=== PATIENT | female | born 1945 | race Caucasian/White ===

== ENCOUNTER → 2016-04-20 | Outpatient (CLI) | payer MEDICARE, OTHER ==
[~2016-04-20] MED LIST: ARTIFICIAL TEA1 EACH OPHTH; ASCORBIC ACID500 MG PO; ASPIRIN325 MG PO; BIOTENE)(DRY MO16 OZ PO; CRAN-MAX500 M1 PO; DIFLUCAN ORA40 MG/ML PO; DULCOLAX10 MG R; FLAGYL500 MG PO; MYLANTA (MAG-AL30 ML PO; PRENATAL 1+1)(P1 TAB PO; PROTONIX40 MG PO; TYLENOL LI160 MG/5 M PO; ZOFRAN4 MG SL; [UNRECOGNIZED DRUG - OTHER] PO; [UNRECOGNIZED DRUG - OTHER] PO; [UNRECOGNIZED DRUG - OTHER] PO; [UNRECOGNIZED DRUG - OTHER] PO
--- NOTE | ~2016-04-20 | COMP ---
PATIENT'S NAME: JENNIFER EVERETT [facility] AGE: 71 Y [address] ROOM: [place], [place] [address] LOCATION: 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 Dear Doctor: Ms. Jennifer Everett recently finished radiotherapy in our facility for metastatic disease to the whole brain. 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 The patient was treated to the whole brain for a dose of 3000 cGy in 300 cGy fractions and finished her radiotherapy on 04/21/2016. When seen on 04/19/2016, the patient was doing reasonably well. The patient's family was concerned about her symptomatology at that time. Milton that her balance was potentially worse. The patient denied headache. Indicated that she thought that her thigh muscles felt weak bilaterally, and the patient was having some difficulty with word finding. The patient was at that time on a dose of Decadron 4 mg twice a day. We had tried to increase the Decadron dose, but the patient indicated that this has increased her symptomatology specifically her leg weakness. PHYSICAL EXAMINATION: VITAL SIGNS: From 04/19/2016 included a temperature of 97.0, pulse of 67, blood pressure of 125/68, pain is 0, and weight is 63.2 kilos. HEENT: Head; examination of the scalp did not reveal erythema or skin breakdown. The patient did have alopecia. Sclerae are clear. Oral cavity did not show any mycotic lesions. The patient did have an upper plate in place. Tongue protrudes in midline. NEUROLOGIC: The patient is alert and oriented x3. Cranial nerves 2 through 12 are intact. Gait is slow and purposeful. SUMMARY OF THERAPY: PATIENT'S NAME: JENNIFER EVERETT [facility] AGE: 71 Y [address] ROOM: [place], [place] [address] LOCATION: [facility] ADMIT DATE: 04/20/2016 Oncology Report DISCHARGE DATE: FAMILY PHYSICIAN: Devora Gonzalez ATTENDING PHYSICIAN: Joselyn Sheikh The patient was treated to the area of the whole brain using opposed lateral 6 mV photons for a dose of 3000 cGy in 300 cGy fractions. The patient was treated between 04/07/2016 and 04/21/2016 for 10 fractions over 14 elapsed treatment days to a total dose of 3000 cGy. IMPRESSION AND PLAN: The patient tolerated the treatment reasonably well. She did have some problems with increasing weakness and some difficulty with word finding. The patient will be tapered off her Decadron carefully. She will be scheduled for routine followup in 1 months' time. She is told to contact us should she have any problems in the interim. We thank you for allowing us to participate in her care. Sincerely, GARCÍA WAGNER MD, PHD MURRAYL/sherinl /[id number] CC: MD Devora Barnhart PA Peter C Morris, MD Nicholas J Hartl, MD David H Weir, MD d: 04/24/16 2254 t: 05/05/16 1124, THERAPY SUMMARY
== END | disposition disaster alternative care site (69) ==
LOC: GRAD 13:39
DX: C54.1 Malignant neoplasm of endometrium (principal); C79.31 Secondary malignant neoplasm of brain; R29.898 Other symptoms and signs involving the musculoskeletal system
CPT/HCPCS: A9577

== ENCOUNTER → 2016-05-25 | Outpatient (CLI) | payer MEDICARE, OTHER | END | disposition disaster alternative care site (69) | LOC: GRAD 09:25 | DX: C54.1 Malignant neoplasm of endometrium (principal); C78.7 Secondary malignant neoplasm of liver and intrahepatic bile duct; K63.89 Other specified diseases of intestine; K80.20 Calculus of gallbladder without cholecystitis without obstruction; K52.0 Gastroenteritis and colitis due to radiation; D70.1 Agranulocytosis secondary to cancer chemotherapy; D64.81 Anemia due to antineoplastic chemotherapy ==

== ENCOUNTER → 2016-06-07 | Outpatient (CLI) | payer MEDICARE, OTHER | END | disposition disaster alternative care site (69) | LOC: GRAD 13:32 | DX: R29.898 Other symptoms and signs involving the musculoskeletal system (principal); C54.1 Malignant neoplasm of endometrium; D64.81 Anemia due to antineoplastic chemotherapy; K52.0 Gastroenteritis and colitis due to radiation; C78.7 Secondary malignant neoplasm of liver and intrahepatic bile duct; D70.1 Agranulocytosis secondary to cancer chemotherapy; R60.0 Localized edema; R10.11 Right upper quadrant pain; Z85.841 Personal history of malignant neoplasm of brain ==

== ENCOUNTER 2016-06-09 15:29 | Inpatient (IN) | payer MEDICARE, OTHER ==
[~2016-06-09] VITALS: Ht 160 cm; Wt 64.5 kg
--- NOTE | ~2016-06-09 | FOL ---
PATIENT'S NAME: JENNIFER CARDENAS [facility] AGE: 71 Y [address] 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 HISTORY OF PRESENT ILLNESS: Jennifer is a 71-year-old female who noticed, for the past 2 weeks, weakness to her legs. The patient had been receiving IV hydration at her medical oncologist's office. The patient states last , she had weakness of the legs, worse on the right than the left. By Tuesday, the patient was unable to stand or move her legs. The patient's family called the medical oncologist's office who recommended she be seen in the emergency room. The patient came to [facility] on 06/09/2016. She had a one-view chest x-ray that was negative for cardiopulmonary disease. MRI of the cervical spine showed spherical enhancing nodule within the cord on the right side behind the C3-4 interspace. Consistent with metastatic focus. Seen previously on cranial MRI study measuring 9 x 7.5 mm. The remainder of the cervical cord appeared normal. No bone lesions were evident. No epidural neoplasm. MRI of the thoracic spine performed on 06/09/2016 showed overall normal vertebral body alignment and monzon signal. Metastatic lesion in the cord at the level of the conus with a craniocaudal dimension of 25 mm. Slightly to the right of the midline with transverse measurement of 6 mm. Remainder of the thoracic cord was normal. There were mild multilevel degenerative changes. The patient was admitted following evaluation in the emergency room. The patient is brought over to the [facility] for CT simulation of the T12 lesion for treatment. The patient denied any pain currently. She had previously received whole brain irradiation to a dose of 3000 cGy. She completed therapy on 04/21/2016. The patient had also received radiation chemotherapy for her endometrial cancer. She was treated to 5040 cGy to the pelvis. She completed therapy on 12/27/2014. The patient then received brachytherapy for 3 fractions to a dose of 1200 cGy and completed therapy on 12/31/2014. The patient had been seeing Dr. Ritchie for chemotherapy. Most recently, the patient was diagnosed with C difficile. She had been placed on Flagyl. The patient was treated twice. PATIENT'S NAME: JENNIFER CARDENAS [facility] AGE: 71 Y [address] ROOM: [address] [address] [place]: [facility] [place]MIT DATE: 06/09/2016 Oncology Report DISCHARGE DATE: FAMILY PHYSICIAN: Devora Gonzalez ATTENDING PHYSICIAN: Austyn OLMOS The patient was complaining of abdominal pain before being diagnosed with C difficile. Her abdominal pain has resolved since starting the Flagyl. PAST MEDICAL HISTORY: ALLERGIES: SULFA, PENICILLIN, AND BENADRYL. MEDICATIONS: 1. Protonix 40 mg daily. 2. Flagyl 500 mg one tablet every 6 hours. 3. Decadron 4 mg IV q.6 hours. 4. Carafate 1 g q.i.d. 5. Mylanta 15 mL b.i.d. p.r.n. 6. Lovenox 30 mg subcu at h.s. 7. Morphine 1 mg IV q.4 hours p.r.n. 8. Tylenol Extra Strength 500 mg one tablet p.o. q.6 hours p.r.n. 9. Zofran 4 mg IV q.8 hours p.r.n. 10. Theravite one tablet daily. 11. HydroDIURIL 25 mg one tablet q.a.m. 12. Citracal 950 mg one tablet daily. 13. Lipitor 10 mg one tablet at h.s. 14. Aspirin 325 mg one tablet daily. MEDICAL PROBLEMS: 1. Hypercholesterolemia. 2. Vertigo. 3. Actinic keratosis to the nose. 4. Gastroesophageal reflux disease. 5. Hypertension. 6. Early cataracts. 7. Decreased auditory acuity. 8. Endometrial cancer. 9. Hiatal hernia noted on CAT scan. 10. Cholelithiasis noted on CAT scan. 11. Fatty liver noted on CAT scan. PAST SURGICAL HISTORY: 1. Tonsillectomy. 2. Tubal ligation in 1984. 3. Right ankle fracture in 1974. 4. Hysteroscopy on 07/18/2014. 5. Dilation and curettage on 07/18/2014. 6. Robotic-assisted total abdominal hysterectomy with bilateral salpingo- oophorectomy and pelvic and periaortic lymphadenectomy on 08/12/2014. PATIENT'S NAME: JENNIFER CARDENAS [facility] AGE: 71 Y [address] ROOM: [place] [address] LOCATION: [facility] [place] ADMIT DATE: 06/09/2016 Oncology Report DISCHARGE DATE: FAMILY PHYSICIAN: Devora Gonzalez ATTENDING PHYSICIAN: Austyn OLMOS 7. Port-A-Cath placement. 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 She and her live by [place]. They have one son and one daughter. She denied any alcohol or tobacco use. She previously received radiation therapy and chemotherapy. FAMILY HISTORY: Father of colon cancer at the age of 94. Mother at the age of 86 with heart disease, diabetes, and hypertension. The patient has a brother and sister who are living. Maternal grandmother had cancer of unknown type. REVIEW OF SYSTEMS: GENERAL: The patient has poor appetite. She feels her weight has been steady. No recent fevers or chills. She does have fatigue. SKIN: Denied any rash, itching, or sores. HEENT: No recent headaches. She has bilateral hearing aids, she is not wearing them today. The patient wears glasses. No change in her vision. LUNGS: No cough. She denied shortness of breath. GASTROINTESTINAL: The patient has been supplementing her diet with Ensure. She has poor appetite. Had recent abdominal pain prior to being diagnosed with C difficile. She is now having formed stools. No further diarrhea. CARDIOVASCULAR: No recent chest pain. No heart palpitations. No previous DC. GENITOURINARY: The patient has stress incontinence. No blood in her urine. No vaginal discharge. NEUROLOGIC: The patient has positional vertigo when she lies flat. The patient is unable to move her right leg. She is able to move her toes on the left foot. MUSCULOSKELETAL: Previous right ankle fracture. The patient previously had been dragging her left leg due to weakness. ENDOCRINE: Denied diabetes. Denied thyroid disease. OBSTETRICAL/GYNECOLOGICAL: The patient had her menarche at the age of 13. She went through menopause at the age of 48. The patient is 2, para 2. She delivered her first child at the age of 21. Doni Duckworth APRN, acting as Dr. Wagner's scribe for the physical examination, impression, and plan. PHYSICAL EXAMINATION: VITAL SIGNS: Temperature 98.0, pulse 63, blood pressure 142/68, and oxygen saturation 98% on room air. The patient's weight is 24.8 kg. The patient is 5 feet 3 inches tall. HEENT: The patient is alert and oriented. Her speech is slightly thickened. This has been stable since diagnosis of brain metastasis. Sclerae are clear. PATIENT'S NAME: JENNIFER CARDENAS [facility] AGE: 71 Y [address] ROOM: [place] [address] [place]: [facility] [place]MIT DATE: 06/09/2016 Oncology Report DISCHARGE DATE: FAMILY PHYSICIAN: Devora Gonzalez ATTENDING PHYSICIAN: Austyn OLMOS Oral cavity does not show any mycosis or mucositis. NECK: No palpable mass or lymphadenopathy to the neck. LUNGS: Clear anteriorly and posteriorly. I do not hear any wheezes, rales, or rhonchi. HEART: Regular rate and rhythm. Normal S1 and S2. ABDOMEN: Soft and nontender. No masses. Active bowel sounds. EXTREMITIES: No edema. Pulses are 1+. The patient can move the toes on the left lower extremity. No motion to the right lower extremity. 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 PLAN: We will plan to treat the patient's lesion at the T12 thoracic spine for 10 treatment fractions to a dose of [address] scan the patient today and treat her later this afternoon once her plan is complete. Dr. Wagner will reevaluate her neck pain next week. She may also receive treatment to this area in 10 treatment fractions to a dose of 3000 cGy. Risks, benefits, and side effects of treatment were discussed with the patient, her , and her daughter today. We will likely bring the patient back later this afternoon to start her radiation therapy. Thank you for allowing us to participate in the care of this patient. DONI DUCKWORTH APRN FOR GARCÍA WAGNER MD, PHD LAD/modl /[id number] CC: MD Devora Pope PA David H Weir, MD d: t: 06/29/16 0921, FOLLOW-UP NOTE
--- NOTE | ~2016-06-09 | DS ---
PATIENT'S NAME: JENNIFER CARDENAS [facility] AGE: 71 Y [address] ROOM: [id number] [place], [place] [address] LOCATION: [facility] [place] ADMIT DATE: 06/09/2016 Discharge Summary DISCHARGE DATE: 06/25/2016 FAMILY PHYSICIAN: Devora Gonzalez ATTENDING PHYSICIAN: Austyn AN DISCHARGE DIAGNOSES: 1. 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 2. Uterine cancer with metastases. 3. Essential hypertension. 4. Constipation. 5. Recent history of Clostridium difficile colitis, resolved. HOSPITAL COURSE: Please refer to admitting history and physical as dictated by Dr. An. Briefly, the patient was admitted to [facility] with bilateral lower extremity weakness. She was started on dexamethasone 10 mg IV, followed by 4 mg IV every six hours. She was also continued on Flagyl for her recent history of C. diff. Lovenox was used for DVT prophylaxis. Oncology and Radiation Oncology were both consulted. MRI of the brain did show an enhancing mass in the cervical cord at C3-C4, with edema within the cord. The brain metastases were no longer discernable consistent with treatment response versus 04/20/2016. Cervical spine MRI showed metastasis focus in the cervical cord with edema directly behind the C3-C4 interspace. Thoracic spine MRI showed bilobed intramedullary cord mets in the conus medullaris. Dr. Peraza and Dr. Gonzales both saw the patient, and it was recommended that she proceed with radiation therapy first starting on the thoracic spine and then moving to the cervical spine. Palliative Care was consulted due to the metastases of her uterine cancer. Her dexamethasone was tapered. Her C. diff colitis was stable. She did finish her course of Flagyl. Physical Therapy and Occupational Therapy were both consulted. She was using a lift for transfers, and subsequently a [id number] lift. Her appetite remained well. Due to her constipation, she was started on Dulcolax suppositories as needed. Discharge planning was discussed. The patient and the family did decide to proceed home with [facility]ospice [facility]. Her radiation to the cervical and thoracic spine were completed on 06/25/2016. The patient and family wished to proceed home with Hospice. Arrangements were made. I did call and discuss the case with Devora Gonzalez PA-C at [facility] prior to the patient's discharge. On the day of discharge, her vital signs were stable. She did have a bowel movement prior to discharge. She was on room air. It was felt as though she was stable to be discharged to home with the [facility] to evaluate and admit. Follow up with PCP in one week if questions. Diet was as tolerated. LABORATORY DATA: Sodium remained stable, potassium was 3.5 to 3.9, calcium PATIENT'S NAME: JENNIFER CARDENAS [facility] AGE: 71 Y [address] ROOM: [id number] [place] [id number] LOCATION: [facility] [place] ADMIT DATE: 06/09/2016 Discharge Summary DISCHARGE DATE: 06/25/2016 FAMILY PHYSICIAN: Devora Gonzalez ATTENDING PHYSICIAN: NICKOLASDagmawe was 8.7, BUN was 21 to 27, creatinine was 0.4 to 0.9, AST was 16, ALT was 32, GFR remained greater than 60, and mag was 1.9. TSH of 1.710. WBCs are 5.4 to 7.3, hemoglobin is 10.6 to 12.2, hematocrit is 30.8 to 35.2, and platelets are 158. UA was negative. RADIOLOGY REPORTS: Please refer to hospital course. DISCHARGE INSTRUCTIONS: The patient will be discharged to home. Diet: As tolerated. Activity: With assistance. Followup: With POLINA Christensen in one week if questions. [facility] to evaluate and admit. DISCHARGE MEDICATIONS: 1. Mylanta 15 mL p.o. twice daily as needed for indigestion. 2. Dexamethasone 2 mg daily for five days and every other day for 5 doses, then discontinue. 3. Carafate 1000 mg orally before meals and at bedtime. 4. Prevacid slurry 10 mL p.o. daily. 5. Fluconazole 100 mg p.o. daily. 6. Lactobacillus 1 packet p.o. daily. 7. Tylenol 650 mg orally every four hours as needed for pain. 8. Biotene mouthwash 1 ounce orally everyday as needed for dry mouth. 9. Zofran 4 mg sublingual every six hours and as needed for nausea. 10. Dulcolax suppository 10 mg rectally every other day for constipation. Time spent at the bedside, as well as with medication reconciliation and consulting physicians was 35 minutes. SPRING BETTS APRN FOR MD MEGHANA NAVAS/sherinl /[id number] CC: POLINA Christensen MD, PhD Maria R Monet, [place] PATIENT'S NAME: JENNIFER CARDENAS [facility] AGE: 71 Y [address] ROOM: [place] [address] LOCATION: [facility] [place] ADMIT DATE: 06/09/2016 Discharge Summary DISCHARGE DATE: 06/25/2016 FAMILY PHYSICIAN: Devora Gonzalez ATTENDING PHYSICIAN: Austyn AN MD d: 06/26/16 0309 t: 07/12/16 2113, DISCHARGE SUMMARY
--- NOTE | ~2016-06-09 | ER ---
PATIENT'S NAME: JENNIFER CARDENAS [facility] AGE: 71 Y [address] ROOM: [address] [place] [address] LOCATION: [facility] [place] ADMIT DATE: 06/09/2016 ER/Outpatient Report DISCHARGE DATE: FAMILY PHYSICIAN: Devora Gonzalez ATTENDING PHYSICIAN: Austyn OLMOS Admission date and time documented in the medical record. I saw the patient at 1545 hours. CHIEF COMPLAINT: Increased weakness in her legs bilaterally. HISTORY OF PRESENT ILLNESS: This patient is a 71-year-old female, brought to the emergency room by a private vehicle for evaluation. The patient has had increasing weakness over the past 2 weeks, worse especially over the past few days to the point that she can just barely move her right leg. She has a little bit of numbness along with weakness in both legs. She can not picker feeder the left leg straight leg raising and keep it at a steady angle for a count of 5 and then lower it. She can not even bend the right leg. She can dorsiflex and plantar flex her left foot. She can not dorsiflex her right foot and can only plantar flex. No upper extremity numbness, tingling, weakness, or loss of function. She is awake, alert, and responsive. Answered questions appropriately. She is oriented. She has a little bit of bilateral shoulder pain because she is having people are having to reach under her arms and her axillas to help her move. said that she had some slurring of words. However, I did not appreciate that here in the emergency department. The patient had an MRI scan of the brain on Tuesday. There was some questionable area right at the base of the brain. She is in need of having an MRI scan of the cervical and thoracic spine, which basically she was sent in for by Dr. Ritchie. This was scheduled for Tuesday, and they thought that it should probably be done sooner. She does have a recent history of C. diff colitis, has been on steroids and Flagyl for this. She is continuing her present treatment. She has not fallen or had any other trauma. Denies any headache, eyes, ears, nose, throat, neck, or spine pain. Other than the C. diff colitis, she has had no other coughs, colds, fever, chills, sweats. Maybe mildly lightheaded at times but no syncope or near syncope. No chest pain, shortness of breath. No abdominal pain. No nausea or vomiting, diarrhea, or urinary complaints. No skin eruptions or rash. No history of other neuro changes, psych issues, endocrine problems. HOME MEDICATIONS: See attached medication list. ALLERGIES: PENICILLIN, SULFA, BENADRYL. PATIENT'S NAME: JENNIFER CARDENAS [facility] AGE: 71 Y [address] ROOM: [address] [place] [address] LOCATION: [facility] [place] ADMIT DATE: 06/09/2016 ER/Outpatient Report DISCHARGE DATE: FAMILY PHYSICIAN: Devora Gonzalez ATTENDING PHYSICIAN: Austyn OLMOS SOCIAL HISTORY: Nonsmoker, nondrinker. SIGNIFICANT PAST MEDICAL HISTORY: Uterine cancer metastatic to bone and brain, gastroesophageal reflux, C. diff colitis. OPERATIONS: Port placement, hysterectomy. REVIEW OF SYSTEMS: All systems reviewed by me are negative with the exception of those discussed in the history of present illness. PHYSICAL EXAMINATION: VITAL SIGNS: Temperature 98.1 tympanic, pulse 73 and regular, respirations 14, blood pressure 136/62, O2 saturation on room air is 97%. HEAD: Normocephalic. No abrasion, contusion, laceration, swelling of scalp or face. EYES: Extraocular muscles intact. PERRL. EARS: Clear TMs bilaterally. NOSE: Clear. THROAT: Clear. Mucous membranes are little dry. NECK: No nuchal rigidity. No thyromegaly or cervical adenopathy. LUNGS: Clear, good air flow. No rales, rhonchi, or wheezes. HEART: Regular. Pulses are palpable. No chest wall or ribcage pain to palpation. ABDOMEN: Soft, nondistended. Active bowel tones. No organomegaly or abnormal mass palpable. No CVA tenderness. EXTREMITIES: No peripheral edema, cyanosis, or deformity. NEURO: The patient has sensory deficits in the lower extremities and motor deficits in both lower extremities, worse in the right. The patient can lift her left leg. She has very little movement in the right lower leg. She can plantar flex her foot on the right. She can plantar flex and dorsiflex her foot on the left. There is no joint swelling. There are no other extremity or neurological lateralizing signs. Cranial nerves appear to be intact. Does have some sensory deficits as well as the motor deficit of the lower extremity. None in the upper extremities. SKIN: Clear. LABORATORY DATA AND X-RAYS: Chest x-ray showed no acute infiltrate or changes. This film was read by the radiologist. PATIENT'S NAME: JENNIFER CARDENAS [facility] AGE: 71 Y [address] ROOM: [place] [address] LOCATION: [facility] [place] ADMIT DATE: 06/09/2016 ER/Outpatient Report DISCHARGE DATE: FAMILY PHYSICIAN: Devora Gonzalez ATTENDING PHYSICIAN: Austyn OLMOS Laboratory: Procalcitonin was less than 0.05. CMS was normal except for a slight low potassium 3.6, elevated glucose 137. CPK was 24, [id number] cardiac enzymes were normal. CRP was less than 0.29. TSH was 1.71. White count was 7300, 91 segs, 6 lymphocytes, 3 monos, hemoglobin was 12.2 with hematocrit 35.2, platelet count was 293,000. Sed rate was 29, PTT was 22, pro- time was 10.7, INR 1.02. Lactate was 1.78. Urinalysis on a cath specimen was pending. MRI scan of the cervical spine and thoracic spine are pending. IMPRESSION: 1. Uterine cancer with metastatic disease to the bone and brain. The patient has been developing increasing weakness in her lower extremities over the past 2 weeks, worse over the past 2 to 3 days, affecting mainly the right leg given the fact that she has sensory and motor deficits in comparison to the left leg, which is just weak and mildly tingly. No other neuro or sensory deficits. 2. Recent Clostridium difficile colitis. 3. Gastroesophageal reflux. PLAN: I did transfer this patient's care over to Dr. Koenig at shift change. I asked Dr. Koenig to follow up with the patient's MRI scans, results, urinalysis results, final diagnosis, and treatment plan. Most likely, the patient will be admitted because of her inability to walk, and family is having problems caring for her because of her extreme weakness. She is not eating or drinking well either. She may therefore need to be placed in a care facility. MD SHIRAZ CAROLINA/mercedez /[id number] d: 06/09/16 2331 t: 06/10/16 0612, OUTPATIENT REPORT
--- NOTE | ~2016-06-09 | CON ---
PATIENT'S NAME: JENNIFER CARDENAS [facility] AGE: 71 Y [address] ROOM: [address] [address] [place] [facility] [place]: 06[place]2016 Consultation DISCHARGE DATE: FAMILY PHYSICIAN: Devora Gonzalez ATTENDING PHYSICIAN: Austyn OLMOS DATE OF CONSULTATION: 06/11/2016 REFERRING PHYSICIAN: Darwin Ritchie MD LOCATION: Medical-Surgical Unit, room 3206. REFERRING PROVIDER: Carl Gonzales MD. CHIEF COMPLAINT: Palliative Care referral for goals of care and patient/family support due to metastatic uterine cancer. HISTORY OF PRESENT ILLNESS: The patient is a 71-year-old female who was admitted with a 1-2 week history of bilateral lower extremity weakness, right greater than left. She has a history of uterine cancer with metastasis to the brain and liver, status post chemo and brain radiation. The patient underwent an MRI which revealed metastatic lesion to the cervical and conus. She was initiated on radiation therapy yesterday. She is also on steroids and currently having some issues with slurred speech and seemingly increased weakness which family believes is related to increased steroids as this had happened in the past. The patient reports that her weakness has worsened since admission with increasing of the steroids. She reports that she lives at home with her as her primary caregiver, that he does most of the house work with the assistance of their daughter. She reports that she has noticed this generalized weakness over the last few weeks and over the last couple of days, this has gotten much worse to the point where she is no longer able to stand and bear weight. She does have a history of a recent diagnosis of C. difficile, and she is currently on a course of Flagyl for this. She does report having had a formed stool at home, but since coming to the hospital, has had a couple of loose ones. The patient denies any pain or discomfort. Denies shortness of breath. Denies chest pain or nausea or vomiting. Appetite has been fairly good. Denies any incontinence of bowel or bladder at this time. Given the patient's metastatic disease, Palliative Care has been consulted to assist this family. PREVIOUS OPERATIONS: 1. Tonsillectomy. 2. Tubal ligation. PATIENT'S NAME: JENNIFER CARDENAS [facility] AGE: 71 Y [address] ROOM: [place] [address] [place] [facility] [place]: 06/[place]/2016 Consultation DISCHARGE DATE: FAMILY PHYSICIAN: Devora Gonzalez ATTENDING PHYSICIAN: Austyn OLMOS 3. Hysterectomy. 4. Power port placement. PAST MEDICAL HISTORY: 1. Recent diagnosis of C. difficile. 2. 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 3. GERD. 4. Hypertension. 5. Hypercholesterolemia. MEDICATIONS: Home medications: 1. Mylanta 15 mL twice daily. 2. Decadron 4 mg p.o. twice daily. 3. Flagyl 500 mg every 6 hours. 4. Protonix 40 mg p.o. twice daily. 5. Carafate 1 g p.o. 4 times daily. ALLERGIES: TO PENICILLIN, SULFA, CODEINE, AND DIPHENHYDRAMINE. SOCIAL HISTORY: The patient is and lives with her , he is her primary caregiver. They live in [place], [place]. No history of drug or alcohol use. FAMILY HISTORY: Father of colon cancer in 1989. Mother had heart disease and diabetes. Brother with hypertension. Her sister is alive and well. REVIEW OF SYSTEMS: GENERAL: Appetite has been fair to good. Unaware of any recent changes in weight. No recent fever, chills, or night sweats. Does have some fatigue, mild to moderate. HEENT: No changes in vision or hearing. Denies headache. Denies double vision. No sinus congestion or postnasal drip. RESPIRATORY: Denies shortness of breath or cough. CARDIOVASCULAR: No chest pain, pressure, or palpitations. Denies orthopnea. No peripheral edema. GASTROINTESTINAL: No nausea, vomiting, diarrhea, or constipation. She does have a recent history of C. difficile, is still on Flagyl, and reports that her last stool at home was formed, but has had a couple looser stools here at the hospital. No dysphagia. GENITOURINARY: Denies urinary frequency or urgency. Denies incontinence. MUSCULOSKELETAL: Denies any joint swelling or joint pain. Has had increasing PATIENT'S NAME: JENNIFER CARDENAS [facility] AGE: 71 Y [address] ROOM: [place] [address] [place] [facility] [place]: 06/09/2016 Consultation DISCHARGE DATE: FAMILY PHYSICIAN: Devora Gonzalez ATTENDING PHYSICIAN: Austyn OLMOS weakness over the last couple of weeks, especially in the last 2 to 3 days. NEUROLOGICAL: Denies numbness or tingling. No dizziness, syncope, or seizures. INTEGUMENTARY: No rashes or open areas. HEMATOLOGICAL: No new bruising or bleeding. PSYCHIATRIC: Denies feeling overly depressed or anxious. Denies insomnia. PHYSICAL EXAMINATION: VITAL SIGNS: Blood pressure 142/67, heart rate 55, temperature 98.2, respirations 18, and O2 saturations 99% on room air. GENERAL: An alert and oriented, elderly white female who is lying in a hospital bed, does not appear to be in any acute distress. Visits pleasantly. Her and daughter are at bedside. HEENT: Normocephalic and atraumatic. She does have alopecia. Pupils are equal, round, and reactive to light. Sclerae anicteric. Conjunctivae pink. Tongue and mucous membranes are moist and pink. CARDIOVASCULAR: Heart tones regular rate and rhythm. I am not able to note a murmur. RESPIRATORY: Respirations are regular and nonlabored. Lung sounds are clear to auscultation bilaterally. I am not able to note any rales, rhonchi, or wheezes. GASTROINTESTINAL: Abdomen is soft, nontender. Bowel sounds are present. GENITOURINARY: Not examined. MUSCULOSKELETAL: No significant joint deformities. Peripheral pulses are strong and equal bilaterally. There is no clubbing, cyanosis, or edema. SKIN: Warm and dry. No unusual lesions or rashes. NEUROLOGICAL: The patient's speech, she does talk as though she has cotton in her mouth. Speech is not really slurred, just mumbled. Left Lower Extremity: The patient is able to lift her knee up off the bed and move her toes. On the right, there is no movement. Bilateral Upper Extremities: Grasp is moderate, left greater than right strength. PSYCHIATRIC: Displays appropriate mood and affect for the situation. Palliative performance scale is 40%. IMPRESSION AND PLAN: 1. Bilateral lower extremity weakness. The patient has been initiated on radiation and steroids increased. Family questions whether these need to be decreased back down, as they feel as though her weakness has gotten worse since increasing the steroids. We will also need to initiate physical and occupational therapy. 2. Code status. The patient is a DNR/DNI. She does have a living will on the chart, this was reviewed with the patient and her family at bedside and all are on the same page. Introduced the role of palliative care for symptom management and goals of PATIENT'S NAME: JENNIFER CARDENAS [facility] AGE: 71 Y [address] ROOM: [place] [address] [place] [facility] [place]: 06/09/2016 Consultation DISCHARGE DATE: FAMILY PHYSICIAN: Devora Gonzalez ATTENDING PHYSICIAN: Austyn OLMOS discussion. Discussed her diagnosis of uterine cancer, her previous treatments and her current symptoms and treatment. They report that the plan is for 10 days of radiation to both areas in her spine per family. The patient tells me that her goal is to be able to return home. She also tells me that quality of life is much more important than quantity at this time. Discussed various placement and therapy options given her current situation. The patient's family reports that they are willing to look at short-term placement at [facility] for therapy. Did also discuss home health care versus hospice benefits and services. At this point, the patient's has been very helpful in her care. I did visit with him in regard to caregiver burnout, he reports that he is getting along quite well and denies any concerns. The patient and family asked appropriate questions for the situation and seemed to have a good understanding of options, treatments, and disease process. They remain hopeful that she will regain some strength, but they do report that they have the option of a full lift at home if needed. Provided education to them on Home Health versus hospice services, answered their questions. Family is very thankful for the visit and will follow up throughout the hospital stay for further goals of care discussion and as we see how treatment affects her strength. Total visit was 45 minutes, greater than 50% of this time was spent providing education and counseling. Thank you for allowing me to assist patient and family. MAXIMILIANO BLACKBURN NP FOR PIO HAN MD DLS/modl /[id number] CC: Carl Gonzales MD d: 06/16/16 2151 t: 06/28/16 1620, CONSULTATION REPORT
--- NOTE | ~2016-06-09 | ER ---
PATIENT'S NAME: JENNIFER CARDENAS [facility] AGE: 71 Y [address] ROOM: [place] [address] [place]: [facility] [place]: 06/09/2016 ER/Outpatient Report DISCHARGE DATE: FAMILY PHYSICIAN: Devora Gonzalez ATTENDING PHYSICIAN: Austyn OLMOS HISTORY OF PRESENT ILLNESS: Briefly, this patient was signed out to me by Dr. Bertrand pending MRI imaging. Briefly, this is a 71-year-old female with history of uterine cancer with mets to the brain presents with right lower extremity weakness. The patient says that this is ongoing for a few days now. She states that she cannot even move her right leg at this time and she cannot plantarflex it, she cannot really dorsiflex it, she cannot lift it up against gravity, and she can no longer walk. She had been seen at her doctor's office for this and they had scheduled an MRI of her cervical spine and back and lumbar thoracic as well. She had an MRI done on 06/07/2016 for her symptoms which showed enhancing mass in the cervical spinal cord at C3-C4, which is new consistent with mets and edema. She is pending on the rest of her MRI at change of shift. I got a call from Dr. Vidal on the MRI cervical spine. She does have an inner medullary lesion at C3-C4 consistent with mets and she also has another lesion in the conus medullaris area. I discussed this with Dr. Ritchie, her oncologist, who wanted to keep her on the steroids, and likely get a Radiation Oncology consult. I discussed this also with the hospitalist as the patient's primary is POLINA Gonzalez; so, we will be admitting to her service. The patient is admitted in stable condition. Family was updated and all questions were answered. MD IRAM MORENO/mercedez /[id number] d: 06/10/165 t: 06/10/16 1834, OUTPATIENT REPORT
--- NOTE | ~2016-06-09 | HP ---
PATIENT'S NAME: JENNIFER CARDENAS [facility] AGE: 71 Y [address] ROOM: [id number] [place], [place] [address] [place] [facility] [place]: 06/09/2016 History & Physical DISCHARGE DATE: FAMILY PHYSICIAN: Devora Gonzalez ATTENDING PHYSICIAN: Austyn OLMOS DATE OF SERVICE: CHIEF COMPLAINT: Lower extremity weakness. HISTORY OF PRESENT ILLNESS: The patient is a pleasant 71-year-old female with past medical history of uterine cancer with mets to brain and liver, status post radiation and chemo, who presents here with few days history of lower extremity weakness, right greater than left. The patient reports that she was her normal self on , however, she felt left lower extremity weakness starting on Tuesday. These symptoms have been progressively getting worse and reports that her right side is greater than left. She reports that today she cannot even use her right lower extremity. She denies any sensory and urinary and bowel incontinence. The patient had MRI of the brain done on June 07 for the current symptoms. The MRI showed enhancing mass in the cervical spinal cord, C3-C4, which is new, which is consistent with metastasis and associated with edema. The brain metastasis showed no longer discernible metastasis consistent with response to treatment. Thus, the patient had MRI of cervical and thoracic and lumbar done today in the emergency department due to ongoing issues. MRI cervical showed the same lesion that was seen earlier, and MRI of the thoracic and lumbar shows metastatic lesion in the cord at the level of the conus with a craniocaudal dimension of 25 mm. The patient also reports of change in speech that happened since March. However, the MRI did not show any reason for her speech change. The patient denies dysphagia, cough, fever, nausea, vomiting, abdominal pain, chest pain, and shortness of breath. The patient had uterine cancer diagnosis around 2014 and has had a complete hysterectomy with chemotherapy and radiation. The patient was also found to have liver mets and brain mass. The patient was treated with radiation for brain and also chemotherapy for the liver. However, liver mets were seen again, and she was treated last in January 2016 was carboplatin and etoposide. The patient also has recent history of C. diff and is currently on Flagyl and her last Flagyl to be given on Tuesday. She denies any diarrhea and reports that she has formed stool. MEDICAL HISTORY: Recent history of C. diff, GERD, uterine cancer, mets to liver and brain. PATIENT'S NAME: JENNIFER CARDENAS [facility] AGE: 71 Y [address] ROOM: [place] [address] [place] [facility] [place]: 06[place] History & Physical DISCHARGE DATE: FAMILY PHYSICIAN: Devora Gonzalez ATTENDING PHYSICIAN: Austyn OLMOS SURGICAL HISTORY: Complete hysterectomy, port placement. FAMILY HISTORY: Dad had colon cancer. Mom had heart disease. SOCIAL HISTORY: The patient is a retired teacher. She lives with her . Denies smoking and drinking. She has 2 kids. MEDICATIONS: 1. Tylenol Carafate. 2. Protonix. 3. Dexamethasone 4 mg b.i.d. 4. Flagyl 500 mg q.6. REVIEW OF SYSTEMS: All have been reviewed and are negative, except for what is mentioned in the HPI. PHYSICAL EXAMINATION: VITAL SIGNS: Temperature 98 degrees Fahrenheit, blood pressure 136/62, heart rate 73, respiratory rate 14, saturating 97% on room air. GENERAL APPEARANCE: The patient is alert and oriented, in no acute distress. HEAD: The patient is bald. Atraumatic. Normocephalic. NECK: No JVD. CHEST: Clear to auscultation bilaterally. EYES: Extraocular muscles intact. EARS: No ear discharge. NOSE: No nasal discharge. HEART: Regular rate and rhythm. No MRG. ABDOMEN: Soft, nontender, and nondistended. Bowel sounds present. EXTREMITIES: Lower extremity, no edema. SKIN: Warm to touch. No obvious skin lesions. NEUROLOGIC: Alert and oriented x3. Upper extremity motor strength 5/5. Lower extremity strength: Right lower extremity 0/5. Left extremity strength 4/5. LABORATORY DATA: White blood cell count of 7.3, hemoglobin of 12.2. Potassium of 3.6, sodium of 141, creatinine of 0.9, BUN of 23. PATIENT'S NAME: JENNIFER CARDENSA [facility] AGE: 71 Y [address] ROOM: [place] [address] [place] [facility] [place]: 06/09/2016 History & Physical DISCHARGE DATE: FAMILY PHYSICIAN: Devora Gonzalez ATTENDING PHYSICIAN: Austyn OLMOS ASSESSMENT AND PLAN: The patient is a pleasant 71-year-old female with past medical history of uterine cancer, also metastasis to brain and liver, status post chemo and radiation, who is currently being treated palliatively rather than curatively, who presents here to our hospital with left lower extremity weakness, secondary to metastatic lesion on cervical and conus. 1. 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 Currently, we will start the patient on IV dexamethasone 10 mg now and 4 mg q.6. we will start the patient on Protonix. Also neuro check every 4 hours. I discussed the patient with Dr. Peraza, our radiation oncologist, for possible radiation treatment tomorrow morning. Also, discussed the case with Dr. Ritchie, the patient's oncologist. 2. History of Clostridium difficile. Currently, not having diarrhea. We will continue Flagyl to finish on Tuesday. 3. Gastroesophageal reflux disease. Continue Protonix. Greater than 70 minutes was spent on the patient's plan and care. Greater than 50% was spent with the patient care. Assessment and plan was discussed with the patient and family members which include daughter and . The patient code status is full code on admission. All question was answered satisfactorily. MD KULDEEP WHITAKER/mercedez /[id number] D: [id number] T: [id number] HISTORY & PHYSICAL
[~2016-06-09 15:29] MED LIST changes: -BIOTENE)(DRY MO16 OZ PO; -DIFLUCAN ORA40 MG/ML PO; -DULCOLAX10 MG R; -FLAGYL500 MG PO; -MYLANTA (MAG-AL30 ML PO; -PROTONIX40 MG PO; -TYLENOL LI160 MG/5 M PO; -ZOFRAN4 MG SL; -[UNRECOGNIZED DRUG - OTHER] PO; -[UNRECOGNIZED DRUG - OTHER] PO; -[UNRECOGNIZED DRUG - OTHER] PO; -[UNRECOGNIZED DRUG - OTHER] PO
[2016-06-09 16:31] LABS: HEMATOCRIT 35.2 % (33.0-46.0); HEMOGLOBIN 12.2 g/dL (10.0-15.0); MCH 32.5 pg (27.0-34.0); MCHC 34.7 gm/dL (32.0-36.5); MCV 93.9 fl (83.0-98.0); MPV 9.5 fl (9.4-12.4); RBC 3.75 M/uL (3.50-5.50); RDW-CV 14.5 % (11.9-14.6); WBC 7.3 K/uL (4.0-11.0)
[2016-06-09 16:34] LABS: PLATELET COUNT 293 K/uL (150-450)
[2016-06-09 16:39] LABS: INR - (THERAPEUTIC) 1.02 (0.92-1.07); PROTIME 10.7 SECONDS (9.8-11.4); PTT 22 SECONDS (25-32)
[2016-06-09 16:50] LABS: ALBUMIN 3.3 gm/dL (3.5-5.0); ALK PHOS 66 IU/L (33-138); ALT 32 IU/L (12-78); ANION GAP 10.6 (10.0-19.0); AST 15 IU/L (10-40); BLOOD UREA NITROGEN 23 mg/dL (6-24); CALCIUM 8.8 mg/dL (8.5-10.5); CHLORIDE 104 mMol/L (96-110); CO2 30 mMol/L (22-32); CPK 24 IU/L (21-215); CREATININE 0.9 mg/dL (0.5-1.1); POTASSIUM 3.6 mMol/L (3.7-5.1); SODIUM 141 mMol/L (135-145); TOTAL BILIRUBIN 0.4 mg/dL (0.0-1.5); TOTAL PROTEIN 6.5 g/dL (6.0-8.4)
[2016-06-09 16:51] LABS: ESTIMATED GFR (MDRD EQUATION) > 60
[2016-06-09 17:42] LABS: ABSOLUTE NEUTROPHIL CT (ANC) 6.6 K/uL (1.8-7.8); LYMPHOCYTE # 0.4 K/uL (0.8-4.0); LYMPHOCYTE % 6 %; MONOCYTE # 0.2 K/uL (0.0-1.0); SEGMENTED NEUTROPHIL # 6.6 K/uL (1.8-7.8); SEGMENTED NEUTROPHIL % 91 %
[2016-06-09 18:35] LABS: BILIRUBIN URINE NEGATIVE (NEGATIVE); BLOOD URINE NEGATIVE /UL (NEGATIVE); COLOR URINE YELLOW (YELLOW); GLUCOSE URINE NEGATIVE (NEGATIVE); KETONE URINE NEGATIVE (NEGATIVE); LEUKOCYTES URINE NEGATIVE /UL (NEGATIVE); NITRITE URINE NEGATIVE (NEGATIVE); PROTEIN URINE NEGATIVE (NEGATIVE); TURBIDITY URINE CLEAR (CLEAR); UROBILINOGEN URINE NORMAL (NORMAL)
[2016-06-09] MEDS ORDERED: MYLANTA (MAG-AL30 ML PO (20:13)
[2016-06-09] MEDS ORDERED: PROTONIX40 MG PO (20:16)
[2016-06-11 06:19] LABS: ANION GAP 10.5 (10.0-19.0); BLOOD UREA NITROGEN 25 mg/dL (6-24); CALCIUM 8.4 mg/dL (8.5-10.5); CHLORIDE 110 mMol/L (96-110); CO2 26 mMol/L (22-32); CREATININE 0.6 mg/dL (0.5-1.1); ESTIMATED GFR (MDRD EQUATION) > 60; MAGNESIUM 1.9 mg/dL (1.8-2.6); POTASSIUM 3.5 mMol/L (3.7-5.1); SODIUM 143 mMol/L (135-145)
[2016-06-11 06:30] LABS: HEMOGLOBIN 11.1 g/dL (10.0-15.0); MCH 32.5 pg (27.0-34.0); MCHC 34.7 gm/dL (32.0-36.5); MCV 93.6 fl (83.0-98.0); MPV 9.8 fl (9.4-12.4); PLATELET COUNT 268 K/uL (150-450); RBC 3.42 M/uL (3.50-5.50); RDW-CV 14.6 % (11.9-14.6); WBC 6.1 K/uL (4.0-11.0)
[2016-06-11 07:47] LABS: ABSOLUTE NEUTROPHIL CT (ANC) 5.9 K/uL (1.8-7.8); BANDED NEUTROPHIL # 0.2 K/uL (0.0-0.1); BANDED NEUTROPHILS % 3 %; LYMPHOCYTE # 0.1 K/uL (0.8-4.0); LYMPHOCYTE % 2 %; MONOCYTE # 0.1 K/uL (0.0-1.0); SEGMENTED NEUTROPHIL # 5.7 K/uL (1.8-7.8); SEGMENTED NEUTROPHIL % 93 %
[2016-06-13 06:04] LABS: ANION GAP 10.7 (10.0-19.0); BLOOD UREA NITROGEN 21 mg/dL (6-24); CALCIUM 8.3 mg/dL (8.5-10.5); CHLORIDE 108 mMol/L (96-110); CO2 29 mMol/L (22-32); CREATININE 0.6 mg/dL (0.5-1.1); ESTIMATED GFR (MDRD EQUATION) > 60; POTASSIUM 3.7 mMol/L (3.7-5.1); SODIUM 144 mMol/L (135-145)
[2016-06-14 05:54] LABS: HEMATOCRIT 33.6 % (33.0-46.0); HEMOGLOBIN 11.7 g/dL (10.0-15.0); MCH 32.5 pg (27.0-34.0); MCHC 34.8 gm/dL (32.0-36.5); MCV 93.3 fl (83.0-98.0); MPV 9.3 fl (9.4-12.4); RDW-CV 14.9 % (11.9-14.6); WBC 5.4 K/uL (4.0-11.0)
[2016-06-14 05:57] LABS: PLATELET COUNT 211 K/uL (150-450)
[2016-06-14 06:12] LABS: ALBUMIN 2.6 gm/dL (3.5-5.0); ALK PHOS 56 IU/L (33-138); ALT 32 IU/L (12-78); ANION GAP 10.9 (10.0-19.0); AST 16 IU/L (10-40); BLOOD UREA NITROGEN 27 mg/dL (6-24); CALCIUM 8.3 mg/dL (8.5-10.5); CHLORIDE 105 mMol/L (96-110); CO2 29 mMol/L (22-32); CREATININE 0.7 mg/dL (0.5-1.1); ESTIMATED GFR (MDRD EQUATION) > 60; POTASSIUM 3.9 mMol/L (3.7-5.1); SODIUM 141 mMol/L (135-145); TOTAL BILIRUBIN 0.4 mg/dL (0.0-1.5); TOTAL PROTEIN 5.5 g/dL (6.0-8.4)
[2016-06-14 06:56] LABS: ABSOLUTE NEUTROPHIL CT (ANC) 5.1 K/uL (1.8-7.8); BANDED NEUTROPHIL # 0.1 K/uL (0.0-0.1); BANDED NEUTROPHILS % 2 %; LYMPHOCYTE # 0.2 K/uL (0.8-4.0); LYMPHOCYTE % 4 %; MONOCYTE # 0.1 K/uL (0.0-1.0); SEGMENTED NEUTROPHIL % 93 %
[2016-06-22 06:03] LABS: ANION GAP 13.9 (10.0-19.0); BLOOD UREA NITROGEN 26 mg/dL (6-24); CALCIUM 8.7 mg/dL (8.5-10.5); CHLORIDE 106 mMol/L (96-110); CO2 28 mMol/L (22-32); CREATININE 0.4 mg/dL (0.5-1.1); ESTIMATED GFR (MDRD EQUATION) > 60; POTASSIUM 3.9 mMol/L (3.7-5.1); SODIUM 144 mMol/L (135-145)
[2016-06-22 06:25] LABS: HEMATOCRIT 30.8 % (33.0-46.0); HEMOGLOBIN 10.6 g/dL (10.0-15.0); MCH 33.3 pg (27.0-34.0); MCHC 34.4 gm/dL (32.0-36.5); MCV 96.9 fl (83.0-98.0); MPV 9.9 fl (9.4-12.4); PLATELET COUNT 158 K/uL (150-450); RBC 3.18 M/uL (3.50-5.50); RDW-CV 16.4 % (11.9-14.6); WBC 5.4 K/uL (4.0-11.0)
[2016-06-22 07:01] LABS: ABSOLUTE NEUTROPHIL CT (ANC) 5.1 K/uL (1.8-7.8); LYMPHOCYTE # 0.1 K/uL (0.8-4.0); LYMPHOCYTE % 2 %; MONOCYTE # 0.2 K/uL (0.0-1.0); SEGMENTED NEUTROPHIL # 5.1 K/uL (1.8-7.8); SEGMENTED NEUTROPHIL % 94 %
[2016-06-25] MEDS ORDERED: [UNRECOGNIZED DRUG - OTHER] PO (12:10)
[2016-06-25] MEDS ORDERED: DIFLUCAN ORA40 MG/ML PO (12:11)
[2016-06-25] MEDS ORDERED: [UNRECOGNIZED DRUG - OTHER] PO (12:12)
[2016-06-25] MEDS ORDERED: [UNRECOGNIZED DRUG - OTHER] PO (12:12)
[2016-06-25] MEDS ORDERED: [UNRECOGNIZED DRUG - OTHER] PO (12:12)
[2016-06-25] MEDS ORDERED: TYLENOL LI160 MG/5 M PO (12:24)
[2016-06-25] MEDS ORDERED: BIOTENE)(DRY MO16 OZ PO (12:24)
[2016-06-25] MEDS ORDERED: ZOFRAN4 MG SL (12:26)
[2016-06-25] MEDS ORDERED: DULCOLAX10 MG R (12:28)
[2016-06-25] MEDS ORDERED: FLAGYL500 MG PO (12:38)
== END 2016-06-25 13:17 | disposition hospice, home (50) | DRG 55 ==
LOC: GMED 15:29 → GMSU 18:49
PROVIDERS: Emergency Medicine; Family Medicine; Nurse Practitioner Family; ADMIT Internal Medicine
DX: C79.49 Secondary malignant neoplasm of other parts of nervous system (principal); A04.7 Enterocolitis due to Clostridium difficile; C78.7 Secondary malignant neoplasm of liver and intrahepatic bile duct; C79.51 Secondary malignant neoplasm of bone; C79.32 Secondary malignant neoplasm of cerebral meninges; C54.1 Malignant neoplasm of endometrium; Z51.5 Encounter for palliative care; Z51.0 Encounter for antineoplastic radiation therapy; R47.81 Slurred speech; I10 Essential (primary) hypertension; K21.9 Gastro-esophageal reflux disease without esophagitis; K59.00 Constipation, unspecified; Z66 Do not resuscitate; Z92.21 Personal history of antineoplastic chemotherapy; Z80.0 Family history of malignant neoplasm of digestive organs; Z92.3 Personal history of irradiation
CPT/HCPCS: C9113; J1100; J1650; J2405; J7030

== ENCOUNTER → 2016-06-25 | Outpatient (CLI) | payer MEDICARE, OTHER ==
[~2016-06-25] MED LIST changes: +BIOTENE)(DRY MO16 OZ PO; +DIFLUCAN ORA40 MG/ML PO; +DULCOLAX10 MG R; +FLAGYL500 MG PO; +MYLANTA (MAG-AL30 ML PO; +PROTONIX40 MG PO; +TYLENOL LI160 MG/5 M PO; +ZOFRAN4 MG SL; +[UNRECOGNIZED DRUG - OTHER] PO; +[UNRECOGNIZED DRUG - OTHER] PO; +[UNRECOGNIZED DRUG - OTHER] PO; +[UNRECOGNIZED DRUG - OTHER] PO
== END | disposition disaster alternative care site (69) ==
LOC: GAMB 12:57
DX: R53.1 Weakness (principal); Z85.43 Personal history of malignant neoplasm of ovary; Z88.0 Allergy status to penicillin; Z88.2 Allergy status to sulfonamides; Z88.8 Allergy status to other drugs, medicaments and biological substances
CPT/HCPCS: A0425; A0428